=== PATIENT | female | born 1980 | race Two or more races ===

== ENCOUNTER 2017-02-18 09:16 | Outpatient (CLI) | payer OTHER ==
[~2017-02-18 09:16] MED LIST: BONTRIL PDM35 MG; HYDROCHLOROTH12.5 M1; LO LOESTRIN FE1 EACH
== END 2017-02-18 09:24 | disposition home or self-care (01) ==
LOC: LAB 09:16
DX: Z34.80 Encounter for supervision of other normal pregnancy, unspecified trimester (principal)

== ENCOUNTER 2017-03-12 09:59 | Outpatient (CLI) | payer OTHER | END 2017-03-12 10:44 | disposition home or self-care (01) | LOC: LAB 09:59 | DX: Z34.80 Encounter for supervision of other normal pregnancy, unspecified trimester (principal) ==

== ENCOUNTER 2017-03-24 12:30 | Outpatient (CLI) | payer OTHER | END 2017-03-24 12:34 | disposition home or self-care (01) | LOC: LAB 12:30 | DX: Z34.80 Encounter for supervision of other normal pregnancy, unspecified trimester (principal) ==

== ENCOUNTER 2017-04-14 02:19 | Inpatient (IN) | payer OTHER ==
[~2017-04-14] VITALS: Ht 160 cm; Wt 108.9 kg
[2017-04-14] MEDS ORDERED: PRENATAL 19 TA1 EACH PO (02:45)
[2017-04-16] MEDS ORDERED: PERCOCET 5-3251 EACH PO (08:30)
== END 2017-04-16 10:41 | disposition home or self-care (01) | DRG 775 ==
LOC: SURG-SUITE 02:19 → LDR 02:19 → SURG-SUITE 06:17
PROC: 0UQGXZZ Repair Vagina, External Approach (ICD-10-PCS; principal; 2017-04-14)
PROC: 10E0XZZ Delivery of Products of Conception, External Approach (ICD-10-PCS; 2017-04-14)
PROC: 0W8NXZZ Division of Female Perineum, External Approach (ICD-10-PCS; 2017-04-14)
PROC: 4A1HXCZ Monitoring of Products of Conception, Cardiac Rate, External Approach (ICD-10-PCS; 2017-04-14)
DX: O71.4 Obstetric high vaginal laceration alone (principal); Z3A.38 38 weeks gestation of pregnancy; Z37.0 Single live birth